=== PATIENT | male | born 1995 | race Caucasian/White ===

== ENCOUNTER 2025-06-01 20:50 | Emergency (ER) | payer MEDICAID, SELFPAY ==
[2025-06-01] VITALS (34 sets, daily range): BP systolic 118–149; BP diastolic 56–93; PULSE 72–89; RESP 16–18; TEMP 36.6; O2SAT 94–99; BMI 33.0
--- NOTE | 2025-06-01 20:51 | ECG_ITS ---
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 Measurements Intervals [place] Rate: 84 P: 144 CA: 164 QRS: 196 QRSD: 104 T: 185 QT: 341 QTc: 405 Interpretive Statements SINUS RHYTHM ARM LEADS REVERSED [INVERTED P AND QRS IN I] No previous ECG available for comparison Electronically Signed On 06-03-2025 16:50:25 METAL BUILDINGS ASSEMBLER by Yunier Ramsey M.D. [email or web address] [id number]
--- NOTE | 2025-06-01 20:54 | XRR_ITS ---
PROCEDURE INFORMATION: Exam: XR Chest Exam date and time: 06/01/2025 9:06 PM Age: 30 years old Clinical indication: Pain; Chest pressure; Additional info: Chest pain TECHNIQUE: Imaging protocol: Radiologic exam of the chest. Views: 1 view. COMPARISON: No relevant prior studies available. FINDINGS: Lungs: Unremarkable. No consolidation. Pleural spaces: Unremarkable. No pleural effusion. No pneumothorax. Heart/Mediastinum: Unremarkable. No cardiomegaly. Bones/joints: Unremarkable. XR/XR chest 1V portable [id number] IMPRESSION: No acute findings.
[2025-06-01 21:00] LABS: Hematocrit 48.8 % (37-53); Hemoglobin 16.40 g/dL (11.27-16.99); Mean Corpuscular HGB Conc 33.6 g/dL (30-55); Mean Corpuscular Hemoglobin 28.6 pg (27-33); Mean Corpuscular Volume 85.2 fl (82-101); Nucleated Red Blood Cells % 0 %; Platelet Count 378 10^3/cmm (157-399); Red Blood Count 5.73 10^6/uL (3.85-5.65); White Blood Count 11.44 10^3/uL (3.29-11.43)
--- NOTE | 2025-06-01 21:10 | PC.NURSE ---
Pt received aspirin via ambulance.
--- OUTSIDE RECORDS SUMMARY | 2025-06-01 21:12 | XMS_ITS | Patient Health Record ---
Author Organization [facility] Address [address] [place] [address] Care Team Providers Care Plastic Sheets Finishing Supervisor Name Role Phone OMAYRA OLIVARES Primary Care Provider [phone] Allergies Allergen (clinical drug ingredient) Drug/Non Drug Allergy documented on EMR Reaction Allergy Type Onset Date Status tramadol Tramadol rash, red skin, and agitated Drug Allergy Active hydrocodone Hysingla ER seizures Drug Allergy Act shaan Reason For Referral No Information Medications Medication SIG (Take, Route, Fr equency, Duration) Notes Start Date End Date Status Dilantin 100 MG 1 capsule Orally Three times a day Active Social History Tobacco Use/Smoking Question Answer Notes Are you a current smoker How often do you smoke cigarettes? every day How many cigarettes a day do you smoke? 6-10 Alcohol Screen (Audit-C) Question Answer Notes Did you have a drink containing alcohol in the p ast year? No Points 0 Interpretation Negative Tobacco use other than smoking: Question Answer Notes Are you an other tobacco user? Yes Problems Problem Type SNOMED Code ICD Code Onset Dates Problem Status W/U Status Risk Notes Problem Generalized anxiety disorder (95059820) Generalized anxiety disorder (F41.1) Active confirmed Problem Seizure (finding) (52122243) Other seizures (G40.89) Active confirmed Plan Of Treatment No Information Insurance Providers Payer Name Payer Address Payer Phone Subscriber Number Group Number Insured Name Patient Relationship to Insured Coverage Start Date Coverage End Date [facility] [address] [place] [address] [phone] [id number] NERY HERZOG Self - patient is the insured Medical (General) History Medical History History ICD Code Other seizures G40.89 Major depressive disorder, recurrent, mo derate F33.1 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
[2025-06-01 21:23] LABS: Troponin(5th) Baseline < 6 ng/L (0-15)
[2025-06-01 21:24] LABS: Alanine Aminotransferase 34 U/L (0-41); Albumin Level 5.1 g/dL (3.5-5.2); Alkaline Phosphatase 70 U/L (40-130); Anion Gap 18.9 (5-19); Aspartate Amino Transferase 22 U/L (0-40); Blood Urea Nitrogen 9 mg/dL (6-20); Calcium 9.5 mg/dL (8.5-10.5); Carbon Dioxide 21 mmol/L (22-29); Chloride 103 mmol/L (98-107); Globulin 3.0 g/dL (1.3-4.6); Glucose 84 mg/dL (65-115); Osmolality Calculated 286 mOsm/kg (285-295); Potassium 3.9 mmol/L (3.5-5.1); Sodium 139 mmol/L (136-145); Total Protein 8.1 g/dL (6.6-8.7)
--- NOTE | 2025-06-01 22:54 | ECG_ITS ---
[facility] Test Date: 2025-06-01 Pat Name: Melissa Ochoa Department: Room: Gender: Male Binman: : 1995 Requested By: Domingo Daniels Order Number: [id number] Lefty MD: Yunier Ramsey M.D. Measurements Intervals [place] Rate: 69 P: 22 ND: 163 QRS: -4 QRSD: 105 T: -6 QT: 370 QTc: 397 Interpretive Statements SINUS RHYTHM WITH SINUS ARRHYTHMIA No previous ECG available for comparison Electronically Signed On 06-03-2025 17:49:28 BOILER COVERER by Yunier Ramsey M.D. [id number] [id number]
[2025-06-01 22:57] LABS: Troponin 5 2HR < 6.0 ng/L (0-15); Troponin 5 2HR Delta 0 ABS# (0-10)
--- NOTE | 2025-06-01 22:59 | ED_ITS ---
HPI - Chest Pain 2 General: Chief Complaint: Chest Pain Stated Complaint: CHEST PAIN History of Present Illness: 30-year-old male presents to the emergen cy room complaining of chest discomfort and anxiety. Patient is at a rehab center. He had some vague chest discomfort no radiation of pain or shortness of breath. No history of any arrhythmias or cardiac disease. Associated symptoms: Deny abdominal pain, dyspnea or fever(s) Related Data Allergies Allergy/AdvReac Type Severity Reaction Status Date / Time No Known Allergies Allergy Verified 06/01/25 23:31 Review of Systems 2 Const: Denies: fever(s) or chills Card: Denies: chest pain Resp: Denies: dyspnea GI: Denies: abdominal pain : Denies: dysuria, urinary frequency or urinary urgency Musc: Denies: neck pain or back pain Skin/Breast: Denies: rash Physical Exam 2 Const: COMMON NORMALS: no acute distress GENERAL APPEARANCE: cooperative and comfortable ORIENTATION/CONSCIOUSNESS: Yes awake, Yes oriented to person, Yes oriented to place and Yes oriented to time HENMT: COMMON NORMALS: normocephalic, atraumatic and hearing grossly normal bilaterally HEAD & SCALP: normocephalic and atraumatic Resp: COMMON NORMALS: normal respiratory effort, No retractions, No use of accessory muscles and clear to auscultation bilaterally AUSCULTATION: clear to auscultation bilaterally Cardio: COMMON NORMALS: regular rate, regular rhythm and No murmurs present (Cardio) RATE: regular rate RHYTHM: regular rhythm GI: COMMON NORMALS: Soft to palpation and No hepatosplenomegaly present A USCULTATION: Yes normoactive bowel sounds PALPATION: Yes Soft to palpation, No Tenderness to palpation present (GI), No Guarding due to palpation present (GI) and Yes No hepatosplenomegaly present Extremity: COMMON NORMALS: normal to inspection, capillary refill normal, no clubbing, cyanosis or edema, no calf tenderness and no pedal edema Neuro: SENSORIUM/ORIENTATION: Yes oriented to person, Yes oriented to place and Yes oriented to time Skin: COMMON NORMALS: no rashes or lesions noted GENERAL SKIN EXAM: no rashes or lesions noted Course 2 Vital Signs: Vital signs: Vital Signs Temperature 98 F 06/01/25 21:03 Pulse Rate 76 06/01/25 23:42 Respiratory Rate 16 06/01/25 23:42 Blood Pressure 137/56 06/01/25 23:42 Pulse Oximetry 95 06/01/25 23:42 Oxygen Delivery Me thod Room Air 06/01/25 22:30 MDM - Chest Pain Medical Decision Making Medical decision making Social determinants: Patient currently residing in a inpatient addiction facility No medical records available for review Denies current medications Alternate historians: None Differential diagnosis pneumonia pulmonary embolism pneumothorax acute coronary syndrome Lab Review: Labs reviewed as found on the chart no sick clinically significant findings Imaging: Chest x-ray did not show any acute abnormalities no infiltrates no pneumothorax no pneumonia no widening of the mediastinum Assessment of risk: Level of risk: Low Hospitalization considerations: Considered pending completion of workup Reexamination: Repeat exam symptoms are improved Assessment and plan: Patient extremely anxious describes symptoms as being result of a panic attack. No signs of acute coronary syndrome. Clinically he has no signs of PE and is no pneumonia or pneumothorax on his chest x-ray no widening of mediastinum. Reviewed findings with the patient he is comfortable being discharged home discharge home and follow-up with his primary care doctor Medical Records I reviewed the patient's medical records. Lab Data I reviewed the patient's lab results. 06/01/25 20:35 06/01/25 20:35 Radiology Impressions Chest X-Ray 06/01/25 20:54 IMPRESSION: No acute findings. Laboratory Results WBC 11.44 10^3/uL (3.29-11.43) H 06/01/25 20:35 RBC 5.73 10^6/uL (3.85-5.65) H 06/01/25 20:35 Hgb 16.40 g/dL (11.27-16.99) 06/01/25 20:35 Hct 48.8 % (37-53) 06/01/25 20:35 MCV 85.2 fl (82-101) 06/01/25 20:35 MCH 28.6 pg (27-33) 06/01/25 20:35 MCHC 33.6 g/dL (30-55) 06/01/25 20:35 RDW 12.9 % (12.1-15.1) 06/01/25 20:35 Plt Count 378 10^3/cmm (157-399) 06/01/25 20:35 MPV 10.2 fL (7.4-10.4) 06/01/25 20:35 Neut % (Auto) 53.1 % 06/01/25 20:35 Lymph % (Auto) 36.3 % 06/01/25 20:35 Amador % (Auto) 7.8 % 06/01/25 20:35 Eos % (Auto) 2.1 % 06/01/25 20:35 Baso % (Auto) 0.4 % 06/01/25 20:35 Neut # (Auto) 6.08 10^3/uL (1.8-7.7) 06/01/25 20:35 Lymph # (Auto) 4.2 10^3/uL (0.8-4.8) 06/01/25 20:35 Amador # (Auto) 0.9 10^3/uL (0.2-0.9) 06/01/25 20:35 Eos # (Auto) 0.2 10^3/uL (0.0-0.8) 06/01/25 20:35 Baso # (Auto) 0.1 10^3/uL (0.0-0.1) 06/01/25 20:35 Nucleated RBC % (auto) 0 % 06/01/25 20:35 Nucleated RBCs # 0.0 /100WBC 06/01/25 20:35 Sodium 139 mmol/L (136-145) 06/01/25 20:35 Potassium 3.9 mmol/L (3.5-5.1) 06/01/25 20:35 Chloride 103 mmol/L (98-107) 06/01/25 20:35 Carbon Dioxide 21 mmol/L (22-29) L 06/01/25 20:35 Anion Gap 18.9 (5-19) 06/01/25 20:35 BUN 9 mg/dL (6-20) 06/01/25 20:35 Creatinine 1.0 mg/dL (0.7-1.2) 06/01/25 20:35 GFR Calculation 87.2 mL/min (90-130) L 06/01/25 20:35 Glucose 84 mg/dL (65-115) 06/01/25 20:35 Calculated Osmolality 286 mOsm/kg (285-295) 06/01/25 20:35 Calcium 9.5 mg/dL (8.5-10.5) 06/01/25 20:35 Total Bilirubin 0.3 mg/dL (0.15-1.2) 06/01/25 20:35 AST 22 U/L (0-40) 06/01/25 20:35 ALT 34 U/L (0-41) 06/01/25 20:35 Alkaline Phosphatase 70 U/L (40-130) 06/01/25 20:35 Troponin T Baseline < 6 ng/L (0-15) 06/01/25 20:35 Troponin T 120 Minute < 6.0 ng/L (0-15) 06/01/25 22:30 Delta Troponin T 0 ABS# (0-10) 06/01/25 22:30 Total Protein 8.1 g/dL (6.6-8.7) 06/01/25 20:35 Albumin 5.1 g/dL (3.5-5.2) 06/01/25 20:35 Globulin 3.0 g/dL (1.3-4.6) 06/01/25 20:35 All radiology interpretation(s) finalized by discharge EKG Data EKG 1: I personally reviewed and interpreted this EKG as follows: Interpretation: EKG 06/01/20252050 sinus rhythm rate of 84 LA interval 164 QTc 383. No acute ST changes noted no EKGs available for comparison Discharge Plan Discharge Patient Disposition: Home Clinical Impression: Atypical chest pain Condition: Stable Discharge Orders: Discharge ED (Routine); Ordered 06/01/25 Ordered By: Domingo Holder Patient Instructions: Chest Pain (ED), Opioid Safety, Pain Management, Patient Portal & Gigi Instructions Activity Restrictions/Additional Instructions: Thank you for choosing [facility] for your healthcare needs today. It is very important that you follow up as instructed or that you return to the Emergency Department should you have concerns or if your condition changes or worsens in any way. Emergency department visits are focused on emergent conditions, in some cases you may require further evaluation on an outpatient basis. You were seen in the emergency room with complaints of chest pain your cardiac enzymes and EKG were normal. No sign of any acute coronary syndrome. Will discharge home follow-up with your primary care doctor as needed (Please note that included in your discharge packet is information concerning opioid safety and pain management. This information is given to all patients were discharged from the ER regardless of their discharge diagnosis or the medicines they usually take or are prescribed.) Print Language: Bengali Coding Level of Care Code ED Chrome Tanning Drum Operator for Chg Fwd Heart Score HEART Score Components History: Slightly Suspicous EKG: Normal Age: Less than 45 yrs Risk Factors: No Risk Factors Known Troponin: Baseline Trop <16 ng/L HEART Score RESULT HEART Score: 0
== END 2025-06-01 23:57 | disposition home or self-care (01) ==
PROVIDERS: Emergency Provider Family Medicine
DX: R07.89 Other chest pain (principal)
CPT/HCPCS: 36415; 71045; 80053; 84484; 85025; 93005; 99285; J9999

== ENCOUNTER 2025-06-14 21:03 | Emergency (ER) | payer MEDICAID, SELFPAY ==
[2025-06-14 21:03] VITALS: BP 119/76; PULSE 92; RESP 16; TEMP 36.8; O2SAT 94; BMI 34.6
--- OUTSIDE RECORDS SUMMARY | 2025-06-14 21:07 | XMS_ITS | Clinical Summary ---
Author Organization [facility] Address [address] [place] [address] Phone Care Team Providers Care Fermentation Operator Name Role Phone Unavailable Primary Care Provider Unavailabl e Allergies No known active allergies Medications No known medications Active Problems No known active problems Social History Tobacco Use Types Packs/Day Years Used Date Smoking Tobacco: Some Days Cigarettes Smokeless Tobacco: Never Tobacco Cessation:Ready to Q uit: Not Asked; Counseling Given: Not Answered Alcohol Use Standard Drinks/Week Comments Not Currently 0 (1 standard drink = 0.6 oz pur e alcohol) Sex and Gender Information Value Date Recorded Sex Assigned at Not on file Legal Sex Male 9:58 AM CDT Gender Identity Not on file Sexual Orientation Not on file Last Filed Vital Signs Vital Sign Reading Time Taken Comments Blood Pressure 158/103 12/17/2022 12:39 PM CDT Pulse 122 12/17/2022 12:39 PM CDT Temperature 37.3 C (99.2 F) 12/17/2022 10:05 AM CDT Respiratory Rate 21 12/17/2022 12:39 PM CDT Oxygen Saturation 95% 12/17/2022 12:39 PM CDT Inhaled Oxygen Concentration - - Weight 95.3 kg (210 lb) 12/17/2022 12:39 PM CDT Height 177.8 cm (5' 10 ) 12/17/2022 10:05 AM CDT Body Mass Index 30.13 12/17/2022 10:05 AM CDT Plan of Treatment Not on file Insurance [place] [facility]
--- NOTE | 2025-06-14 21:12 | ECG_ITS ---
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 Measurements Intervals [place] Rate: 89 P: 38 FL: 155 QRS: 23 QRSD: 100 T: -3 QT: 360 QTc: 440 Interpretive Statements SINUS RHYTHM NONSPECIFIC T-WAVE ABNORMALITY Compared to ECG 06/01/2025 23:09:00 T-wave abnormality now present Sinus arrhythmia no longer present Electronically Signed On 06-15-2025 17:25:36 MANAGER WAREHOUSE by Moustapha Feliciano M.D. [id number]
--- NOTE | 2025-06-14 21:34 | XRR_ITS ---
PROCEDURE INFORMATION: Exam: XR Chest Exam date and time: 06/14/2025 9:42 PM Age: 30 years old Clinical indication: Pain; Chest pressure; Additional info: Chest pain TECHNIQUE: Imaging protocol: Radiologic exam of the chest. Views: 1 view. COMPARISON: CR (CHEST, ) 06/01/2025 9:06 PM FINDINGS: Lungs: Unremarkable. No consolidation. Pleural spaces: Unremarkable. No pleural effusion. No pneumothorax. Heart/Mediastinum: Unremarkable. No cardiomegaly. Bones/joints: Unremarkable. XR/XR chest 1V portable [id number] IMPRESSION: No acute findings.
--- NOTE | 2025-06-14 21:36 | ED_ITS ---
HPI - Chest Pain 2 General: Chief Complaint: Chest Pain Stated Complaint: cp Time Seen by Provider: 06/14/25 21:12 History of Present Illness: Patient is a 30-year-old male without medical history, that had right chest pressure at rest. This was associated with palpitations, and shortness of breath This occurred at 6:30 PM. Patient was in Bible study or classes at this time. No early family history. He has had this occur 1 other time was ruled out on this standpoint. He has had aspirin 324 mg, and nitroglycerin. He states he feels better. He states his blood pressure was quite elevated on EMS arrival. Associated symptoms: Deny abdominal pain, dyspnea, fever(s), nausea, palpitations or vomiting Related Data Allergies Allergy/AdvReac Type Severity Reaction Status Date / Time No Known Allergies Allergy Verified 06/01/25 23:31 Review of Systems 2 General: Reports: 10 or more systems reviewed and unremarkable except in HPI and below Const: Denies: fever(s) or chills ENMT: Denies: throat pain or dry mouth Card: Denies: chest pain or palpitations Resp: Denies: dyspnea, productive cough or non-productive cough GI: Denies: abdominal pain, nausea or vomiting : Denies: dysuria, urinary frequency or urinary urgency Musc: Denies: neck pain or back pain Skin/Breast: Denies: rash Neuro: Denies: headache(s), numbness in extremities or weakness in extremities Physical Exam 2 Const: COMMON NORMALS: no acute distress GENERAL APPEARANCE: cooperative and comfortable ORIENTATION/CONSCIOUSNESS: Yes awake, Yes oriented to person, Yes oriented to place and Yes oriented to time HENMT: COMMON NORMALS: normocephalic, atraumatic and hearing grossly normal bilaterally HEAD & SCALP: normocephalic and atraumatic Neck/C-Spine: COMMON NORMALS: full ROM, no lymphadenopathy, supple and no meningeal signs Resp: COMMON NORMALS: normal respiratory effort, No retractions, No use of accessory muscles and clear to auscultation bilaterally AUSCULTATION: clear to auscultation bilaterally Cardio: COMMON NORMALS: regular rate, regular rhythm and No murmurs present (Cardio) RATE: regular rate RHYTHM: regular rhythm GI: COMMON NORMALS: Normal to inspection, nondistended, normoactive bowel sounds present, Soft to palpation, non-tender and No hepatosplenomegaly present AUSCULTATION: Yes normoactive bowel sounds PALPATION: Yes Soft to palpation, No Tenderness to palpation present (GI), No Guarding due to palpation present (GI) and Yes No hepatosplenomegaly present Extremity: COMMON NORMALS: normal to inspection, capillary refill normal, no clubbing, cyanosis or edema, no calf tenderness and no pedal edema Neuro: SENSORIUM/ORIENTATION: Yes oriented to person, Yes oriented to place and Yes oriented to time MENINGEAL SIGNS: Yes no meningeal signs Skin: COMMON NORMALS: no rashes or lesions noted GENERAL SKIN EXAM: no rashes or lesions noted Course 2 Vital Signs: Vital signs: Vital Signs Temperature 98.2 F 06/14/25 21:03 Pulse Rate 75 06/14/25 22:58 Respiratory Rate 16 06/14/25 21:03 Blood Pressure 122/77 06/14/25 22:58 Pulse Oximetry 95 06/14/25 22:58 Oxygen Delivery Me thod Room Air 06/14/25 22:45 MDM - Chest Pain Medical Decision Making 30-year-old gentleman that presents with resting chest pressure 3 hours after occurring. This was improved with nitroglycerin and aspirin. Patient's blood pressure was escalated via EMS. This could be the underlying issue, versus sleep apnea with his hemoconcentrated hemoglobin of 17.1/possibly secondary polycythemia vera. D-dimer in any event and is negative for acute pathology. Given his palpitation this was prudent to check this as well. Troponin is negative after 3 hours. Patient be discharged home with follow-up and concerns addressed. Medical Records I reviewed the patient's medical records. Lab Data I reviewed the patient's lab results. 06/14/25 21:12 06/14/25 21:12 Radiology Impressions Chest X-Ray 06/14/25 21:34 IMPRESSION: No acute findings. Laboratory Results WBC 9.40 10^3/uL (3.29-11.43) 06/14/25 21:12 RBC 5.93 10^6/uL (3.85-5.65) H 06/14/25 21:12 Hgb 17.10 g/dL (11.27-16.99) H 06/14/25 21:12 Hct 50.3 % (37-53) 06/14/25 21:12 MCV 84.8 fl (82-101) 06/14/25 21:12 MCH 28.8 pg (27-33) 06/14/25 21:12 MCHC 34.0 g/dL (30-55) 06/14/25 21:12 RDW 12.1 % (12.1-15.1) 06/14/25 21:12 Plt Count 386 10^3/cmm (157-399) 06/14/25 21:12 MPV 10.0 fL (7.4-10.4) 06/14/25 21:12 Neut % (Auto) 64.6 % 06/14/25 21:12 Lymph % (Auto) 24.7 % 06/14/25 21:12 [place] % (Auto) 8.6 % 06/14/25 21:12 Eos % (Auto) 1.5 % 06/14/25 21:12 Baso % (Auto) 0.4 % 06/14/25 21:12 Neut # (Auto) 6.07 10^3/uL (1.8-7.7) 06/14/25 21:12 Lymph # (Auto) 2.3 10^3/uL (0.8-4.8) 06/14/25 21:12 [place] # (Auto) 0.8 10^3/uL (0.2-0.9) 06/14/25 21:12 Eos # (Auto) 0.1 10^3/uL (0.0-0.8) 06/14/25 21:12 Baso # (Auto) 0.0 10^3/uL (0.0-0.1) 06/14/25 21:12 Nucleated RBC % (auto) 0 % 06/14/25 21:12 Nucleated RBCs # 0.0 /100WBC 06/14/25 21:12 D-Dimer <= 0.27 ug/mLFEU (0-0.59) 06/14/25 21:12 Sodium 138 mmol/L (136-145) 06/14/25 21:12 Potassium 4.3 mmol/L (3.5-5.1) 06/14/25 21:12 Chloride 102 mmol/L (98-107) 06/14/25 21:12 Carbon Dioxide 25 mmol/L (22-29) 06/14/25 21:12 Anion Gap 15.3 (5-19) 06/14/25 21:12 BUN 9 mg/dL (6-20) 06/14/25 21:12 Creatinine 0.9 mg/dL (0.7-1.2) 06/14/25 21:12 GFR Calculation 98.4 mL/min (90-130) 06/14/25 21:12 Glucose 85 mg/dL (65-115) 06/14/25 21:12 Calculated Osmolality 284 mOsm/kg (285-295) L 06/14/25 21:12 Calcium 9.8 mg/dL (8.5-10.5) 06/14/25 21:12 Total Bilirubin 0.3 mg/dL (0.15-1.2) 06/14/25 21:12 AST 20 U/L (0-40) 06/14/25 21:12 ALT 28 U/L (0-41) 06/14/25 21:12 Alkaline Phosphatase 66 U/L (40-130) 06/14/25 21:12 Troponin T Baseline 7 ng/L (0-15) 06/14/25 21:12 NT-Pro-B Natriuret Pep < 36 pg/mL (0-125) 06/14/25 21:12 Total Protein 7.8 g/dL (6.6-8.7) 06/14/25 21:12 Albumin 5.0 g/dL (3.5-5.2) 06/14/25 21:12 Globulin 2.8 g/dL (1.3-4.6) 06/14/25 21:12 Lipase 27 U/L (13-60) 06/14/25 21:12 All radiology interpretation(s) finalized by discharge Discharge Plan Discharge Patient Disposition: Home Clinical Impression: Atypical chest pain Condition: Stable Discharge Orders: Discharge ED (Routine); Ordered 06/14/25 Ordered By: Agueda Torrez Discharge Diet: Low Salt Patient Instructions: DASH Eating Plan (ED), Noncardiac Chest Pain (ED), Patient Portal & Gigi Instructions Activity Restrictions/Additional Instructions: - Considerations with your noncardiac chest pain tonight: Your hemoglobin is high, you need to drink more fluids. Possibly a question of sleep apnea. Please check with your regular doctor regarding a sleep study, follow-up with your primary regarding your blood pressure. - Take daily Aspirin 81 mg coated daily - If you do have chest pain again, we will have to see if you are doing okay in the er Thank you for choosing [facility] for your healthcare needs today. You have been screened and evaluated and felt safe for discharge. Health conditions do change or evolve sometimes and as such it is important that you follow up with your Primary Doctor to be re checked, 3-5 days is a general good time frame for follow up. You are always welcome to return to the ED for re assessment if your symptoms are worsening or you have new concerns Print Language: Singaporean Coding Level of Care Code ED Electric Meter Reader for Chg Fwd Heart Score HEART Score Components History: Slightly Suspicous EKG: Normal Age: Less than 45 yrs Risk Factors: No Risk Factors Known Troponin: Baseline Trop <16 ng/L HEART Score RESULT HEART Score: 0
[2025-06-14 21:54] LABS: Hematocrit 50.3 % (37-53); Hemoglobin 17.10 g/dL (11.27-16.99); Mean Corpuscular HGB Conc 34.0 g/dL (30-55); Mean Corpuscular Hemoglobin 28.8 pg (27-33); Mean Corpuscular Volume 84.8 fl (82-101); Nucleated Red Blood Cells % 0 %; Platelet Count 386 10^3/cmm (157-399); Red Blood Count 5.93 10^6/uL (3.85-5.65); White Blood Count 9.40 10^3/uL (3.29-11.43)
[2025-06-14 22:03] LABS: Troponin(5th) Baseline 7 ng/L (0-15)
[2025-06-14 22:13] LABS: Alanine Aminotransferase 28 U/L (0-41); Albumin Level 5.0 g/dL (3.5-5.2); Alkaline Phosphatase 66 U/L (40-130); Anion Gap 15.3 (5-19); Aspartate Amino Transferase 20 U/L (0-40); Blood Urea Nitrogen 9 mg/dL (6-20); Calcium 9.8 mg/dL (8.5-10.5); Carbon Dioxide 25 mmol/L (22-29); Chloride 102 mmol/L (98-107); Globulin 2.8 g/dL (1.3-4.6); Glucose 85 mg/dL (65-115); Lipase 27 U/L (13-60); NT Pro B Type Natriuretic Pept < 36 pg/mL (0-125); Osmolality Calculated 284 mOsm/kg (285-295); Potassium 4.3 mmol/L (3.5-5.1); Sodium 138 mmol/L (136-145); Total Protein 7.8 g/dL (6.6-8.7)
[2025-06-14 22:26] VITALS: BP 120/75; PULSE 90; O2SAT 96
[2025-06-14 22:30] VITALS: BP 102/88; PULSE 89; O2SAT 98
[2025-06-14 22:45] VITALS: BP 111/76; PULSE 77; O2SAT 96
[2025-06-14 22:58] VITALS: BP 122/77; PULSE 75; O2SAT 95
== END 2025-06-14 23:14 | disposition home or self-care (01) ==
PROVIDERS: Emergency Provider Physician Assistant
DX: R07.89 Other chest pain (principal)
CPT/HCPCS: 71045; 80053; 83690; 83880; 84484; 85025; 85378; 93005; 99285